=== PATIENT | female | born 1985 | race Caucasian/White ===

== ENCOUNTER 2021-10-06 13:14 | Emergency (ER) | payer OTHER, SELFPAY ==
[2021-10-06 13:16] VITALS: BP 138/97; PULSE 98; RESP 18; TEMP 35.7; O2SAT 96; BMI 31.9
--- NOTE | 2021-10-06 14:23 | CT_ITS ---
INDICATION: RLQ right flank pain EXAMINATION: CT ABDOMEN AND PELVIS WITH CONTRAST - CT Abdomen And Pelvis W/ Contrast Injection TECHNIQUE: Helically acquired images were obtained of the abdomen and pelvis following IV contrast. A radiation dose optimization technique was used for this scan. IV Contrast dosage and agent: 100 mL of [id number] Oral contrast: None. COMPARISON: 10/10/2011.. FINDINGS: LOWER CHEST: Lung bases are clear. No cardiomegaly or pericardial effusion. LIVER: Homogeneous. No focal mass. GALLBLADDER AND BILIARY TREE: No calcified gallstones. No gallbladder distension or wall edema. No intra- or extrahepatic biliary ductal dilation. PANCREAS: No focal cystic or solid mass. SPLEEN: Normal size without focal cystic or solid mass. ADRENAL GLANDS: No nodules. KIDNEYS AND URETERS: Normal renal size and position. No hydronephrosis. PERITONEUM: No ascites or free air. No other fluid collection. BOWEL: The stomach is unremarkable. Catheter fluid-filled loops of small bowel visualized. The cecum is visualized in the midabdomen. Focal dilation of the cecum but no evidence of wall thickening, no evidence of stranding of the adjacent fat planes is seen. No evidence of acute appendicitis. No stomach or bowel distension. No focal inflammatory change. LYMPH NODES: Scattered mesenteric and retroperitoneal lymph nodes. VESSELS: Aorta is non-dilated. URINARY BLADDER: Unremarkable. REPRODUCTIVE ORGANS: Anteverted anteflexed uterus demonstrates lobulated contour with focal areas of low attenuation visualized within the myometrium but no evidence of well-defined masses suggest uterine fibroids. Prominence of the ovaries is visualized bilaterally but more prominent on the right with larger prominent cyst visualized more prominent on the right seen on axial series 2 image 90 demonstrating hypervascularity along its periphery, hypervascular cysts also visualized in the left ovary visualized on axial series 2 image 79. Small amount of free fluid visualized within the pelvis more prominent on the left. Increased vascularity with ovarian vessels visualized on coronal series 601 image 58. ABDOMINAL WALL: No discrete abdominal or pelvic wall hernia. BONES: No lytic or blastic abnormality. CT/Abdomen/Pelvis W IV Cont ONLY IMPRESSION: Prominent ovaries visualized bilaterally with hypervascularity and suggestion of ruptured cysts seen, more prominent on the right, would recommend further evaluation with transvaginal pelvic ultrasound. Heterogeneous attenuation and nodularity visualized within the myometrium of fluid within the endometrial cavity recommend further evaluation with transvaginal pelvic ultrasound. Scattered mesenteric and inguinal lymphadenopathy is seen. Electronically Signed: Franklin Zuniga MD at 15:38 EST Tel , Service support ,
--- NOTE | 2021-10-06 14:23 | ED.VIS.GI ---
HPI HPI - GI History of Present Illness Chief Complaint: Abd Pain Informant: patient Narrative Narrative: Patient presents with right lower quadrant and right flank pain. She states when she woke up this morning she felt good. She states that the pain started but has increased. Its sharp but constant. She is not sure if it starts in the right lower quadrant and radiates to her back or vice versa. No discharge or bleeding. Last menstrual cycle about a month ago. She does have history of prior ovarian cyst and kidney stones but has been on long time. She has had 4 C-sections and tubal ligation but no other intra-abdominal surgery. She still has gallbladder and appendix. She denies fevers. Motion and pressing on the area does hurt somewhat. But it hurts all the time anyway. PFSH PFS Medical History History of kidney stones Hx of ovarian cyst Home Medications ferrous sulfate [Iron (ferrous sulfate)] 325 mg PO DAILY 07/31/15 [History Last Taken 04/22/17 12:00] [id number] [Prenatabs FA] 1 tab PO DAILY 07/31/15 [History Last Taken 04/22/17 21:00] nitrofurantoin monohyd/m-cryst 100 mg PO Q12 #14 capsule 03/26/17 [Rx Last Taken 04/22/17 18:30] Ibuprofen [Motrin] 800 mg PO TID PRN PRN #60 tab 04/26/17 [Rx Last Taken Unknown] oxycodone-acetaminophen 1 - 2 tab PO Q6H PRN PRN #40 tab 04/26/17 [Rx Last Taken Unknown] naproxen 500 mg PO BID #14 tab 10/06/21 [Rx Last Taken Unknown] Allergy/AdvReac Type Severity Reaction Status Date / Time miconazole Allergy Itching Verified 10/06/21 13:16 [From Neosporin AF] Social History Smoking Status: Never smoker ROS ROS ED Constitutional Constitutional ED: Denies fever(s) or subjective ENT ENT ED: Denies rhinorrhea Cardiovascular Cardiovascular: Denies chest pain Respiratory/Chest Respiratory/Chest: Denies cough or dyspnea Gastrointestinal Gastrointestinal: Reports abdominal pain and nausea; Denies constipation, diarrhea, melena or vomiting Genitourinary Genitourinary ED: Reports other Details: Possibly slightly darker. No dysuria. ; Denies dysuria Musculoskeletal Musculoskeletal: Denies arthralgias or myalgias Integumentary Denies rash Neurologic Neurologic: Denies headache(s) Endocrine Endocrinology: Denies polydipsia or polyuria Hematologic/Lymphatic Hematologic/Lymphatic: Denies easy bleeding or easy bruising Allergic/Immunologic Allergic/Immunologic ED: Denies mouth swelling or urticaria EXAM Physical Exam Const Vital Signs: 10/06/21 13:16 10/06/21 15:42 Temperature 96.3 F L Temperature Source Temporal Pulse Rate 98 Respiratory Rate 18 16 Blood Pressure 138/97 H Blood Pressure Mean 110 Pulse Ox 96 Oxygen Delivery Method Room Air Positive well nourished and well developed General Appearance ED: well developed and NAD HEENT Reports moist mucous membranes Eyes General Eye ED: Negative for pale conjunctiva or scleral icterus Neck no JVD Resp normal respiratory effort and clear to auscultation bilaterally Auscultation: Negative for rales, rhonchi or wheezes Cardio regular rate and regular rhythm GI non-distended and no masses GI Narrative: She does have some mild right lower quadrant tenderness but no rebound or guarding. This does not seem to extend into the pelvis. Auscultation: normoactive bowel sounds Palpation: soft Back/Spine General Back: CVA tenderness Extremity full ROM General Extremety ED: Yes edema General Extremity: edema Neuro Sensorium / Orientation: alert and oriented to person Psych mental status grossly normal Skin Lesions: no lesions Rashes: no rashes MDM MDM MDM Narrative Medical decision making narrative: Patient's blood work showed very minimal nonspecific elevation of her white count to 12.1. Hemoglobin platelets are normal. Electrolytes show no marked abnormalities. Serum is negative. Urinalysis shows some red cells but no white cells. Negative nitrites. Only a very small amount of leukocyte esterase. CAT scan tends to point toward ovarian cyst as the source of her symptoms. No sign of appendicitis or kidney stone. Patient states she is very comfortable now. We discussed the options of further exam and ultrasound but she states she has had cysts before she has done well with them. I explained that if she has worsening pain, vomiting, fevers she should return. We will write for nonsteroidals. Lab Data Attestation: I reviewed the patient's lab results. Labs: Laboratory Results - last 24 hr 10/06/21 10/06/21 10/06/21 13:39 13:39 13:39 WBC 12.1 H RBC 4.84 Hgb 14.4 Hct 41.7 MCV 86.2 MCH 29.8 MCHC 34.5 RDW Std Deviation 38.2 RDW Coeff of Yen 12.2 Plt Count 332 MPV 9.0 Immature Gran % (Auto) 0.300 Neut % (Auto) 65.4 Lymph % (Auto) 26.3 [place] % (Auto) 6.5 Eos % (Auto) 1.0 Baso % (Auto) 0.5 Absolute Neuts (auto) 7.9 H Absolute Lymphs (auto) 3.18 Nucleated RBC % 0 Sodium 139 Potassium 3.4 L Chloride 107 Carbon Dioxide 25.0 Anion Gap 7 BUN 13 Creatinine 0.76 Estim Creat Clear Calc 86.28 Est GFR (MDRD) Af Amer 112 Est GFR (MDRD) Non-Af 92 BUN/Creatinine Ratio 17.1 Glucose 95 Calcium 9.3 Serum , Qual NEGATIVE Urine Color Urine Clarity Urine pH Ur Specific [place] Urine Protein Urine Glucose (UA) Urine Ketones Urine Occult Blood Urine Nitrite Urine Bilirubin Urine Urobilinogen Ur Leukocyte Esterase Urine RBC Urine WBC Ur Squamous Epith Cells Urine Bacteria Urine Mucus 10/06/21 13:40 WBC RBC Hgb Hct MCV MCH MCHC RDW Std Deviation RDW Coeff of Yen Plt Count MPV Immature Gran % (Auto) Neut % (Auto) Lymph % (Auto) [place] % (Auto) Eos % (Auto) Baso % (Auto) Absolute Neuts (auto) Absolute Lymphs (auto) Nucleated RBC % Sodium Potassium Chloride Carbon Dioxide Anion Gap BUN Creatinine Estim Creat Clear Calc Est GFR (MDRD) Af Amer Est GFR (MDRD) Non-Af BUN/Creatinine Ratio Glucose Calcium Serum , Qual Urine Color Yellow Urine Clarity Sl. Cloudy Urine pH 5.0 Ur Specific [place] 1.020 Urine Protein Negative Urine Glucose (UA) Normal Urine Ketones Negative Urine Occult Blood 150 H Urine Nitrite Negative Urine Bilirubin Negative Urine Urobilinogen Normal Ur Leukocyte Esterase 25 H Urine RBC 10-25 SEEN Urine WBC 0-5 SEEN Ur Squamous Epith Cells 0-5 SEEN Urine Bacteria 1+ Urine Mucus 0 SEEN Radiography Diagnostic Testing: Clinical Impression(s) from Imaging Studies Abdomen/Pelvis CT 10/06/21 14:23 IMPRESSION: Prominent ovaries visualized bilaterally with hypervascularity and suggestion of ruptured cysts seen, more prominent on the right, would recommend further evaluation with transvaginal pelvic ultrasound. Heterogeneous attenuation and nodularity visualized within the myometrium of fluid within the endometrial cavity recommend further evaluation with transvaginal pelvic ultrasound. Scattered mesenteric and inguinal lymphadenopathy is seen. Electronically Signed: Franklin Zuniga MD at 15:38 EST Tel , Service support , Discharge Plan Triage Chief Complaint: Abd Pain ED Provider: Hugo Francis Dx/Rx/DC Orders Clinical Impression: Abdominal pain, Ovarian cyst rupture Instructions: ED Ovarian Cyst Prescriptions: New naproxen 500 MG tablet 500 mg PO BID Qty: 14 RF: 0 No Action ferrous sulfate [Iron (ferrous sulfate)] 325 MG tablet 325 mg PO DAILY RF: 0 [id number] [Prenatabs FA] 1 TABLET tablet 1 tab PO DAILY RF: 0 oxycodone-acetaminophen 1 TABLET tablet 1 - 2 tab PO Q6H PRN PRN (Reason: Pain) Qty: 40 RF: 0 Ibuprofen [Motrin] 800 MG tablet 800 mg PO TID PRN PRN (Reason: Pain) Qty: 60 RF: 1 nitrofurantoin monohyd/m-cryst 100 MG capsule 100 mg PO Q12 Qty: 14 RF: 0 Primary Care Provider: Tatianna Baeza Referrals: Tatianna Baeza MD [Primary Care Provider] - 3-5 Days if not improving Disposition Disposition: Home, Self Care
[2021-10-06 14:38] LABS: Absolute Lymphocyte Count 3.18 X10^3/uL (0.83-4.51); Absolute Neutrophil Count 7.9 X10^3/uL (2.0-7.7); Basophil# 0.06 X10^3/uL; Basophil% 0.5 % (0-1); Eosinophil# 0.12 X10^3/uL; Hematocrit 41.7 % (37-47); Hemoglobin 14.4 g/dL (12.0-15.0); Lymphocyte # 3.18 X10^3/ul (0.83-4.51); Lymphocyte % 26.3 % (19-41); Mean Corp Hgb Conc 34.5 g/dL (32-36); Mean Corpuscular Hgb 29.8 pg (27.0-32.0); Mean Corpuscular Volume 86.2 fL (81-99); Monocyte# 0.78 X10^3/uL; Monocyte% 6.5 % (0-10); NRBC Flagged by Analyzer 0 % (0-5); Neutrophil # 7.91 X10^3/uL (2.7-7.7); Neutrophil % 65.4 % (47-70); Platelet Count 332 K/mm3 (150-450); RBC Distribution Width CV 12.2 % (11.6-14.6); RBC Distribution Width SD 38.2 fl (35.1-43.9); Red Blood Count 4.84 M/mm3 (4.2-5.4); White Blood Count 12.1 K/mm3 (4.4-11.0)
[2021-10-06] MEDS: Ondansetron 4 MG/2 ML Vial IV (14:39)
[2021-10-06] MEDS: Morphine 4 MG/ML Syringe IV (14:39)
[2021-10-06] MEDS: 0.9% Normal Saline 1,000 ML 1000 ML IV (14:39)
[2021-10-06 14:43] LABS: Internal QC Validated? YES +Cl - CLEAR BKGD; Pregnancy, Serum, hCG Quali. NEGATIVE Negative
[2021-10-06 14:47] LABS: Anion Gap 7 (5-15); BUN 13 mg/dL (7-18); BUN/Creat Ratio 17.1 RATIO (10-20); Calcium,Total 9.3 mg/dL (8.5-10.1); Chloride 107 mmol/L (98-107); Creatinine, Serum 0.76 mg/dL (0.55-1.02); EST Glomerular Filtration Rate 92 mL/min (>60); Est Glom Filt Rate - Afr Amer 112 mL/min (>60); Estimated Creatinine Clearance 86.28 ml/min; Glucose 95 mg/dL (74-106); Potassium 3.4 mmol/L (3.5-5.1); Sodium Level 139 mmol/L (136-145)
[2021-10-06 14:49] LABS: Mucous, Urine 0 SEEN /hpf (<or=2+)
[2021-10-06 14:51] LABS: Color, Urine Yellow (Yellow); Glucose, Dipstick Normal (Normal); Ketone-Dipstick Negative (Negative); Leukocyte Esterase-Dipstick 25 /ul (Negative); Nitrite-Dipstick Negative (Negative); Occult Blood-Urine 150 /ul (Negative); Protein-Dipstick Negative (Negative); Urine Bilirubin Dipstick Negative (Negative); Urine Clarity Sl. Cloudy (Clear); Urine Urobilinogen Normal (Normal)
[2021-10-06 15:07] LABS: Red Blood Cells-Urine 10-25 SEEN /hpf (0-5); Squamous Epithelial Cells - UA 0-5 SEEN /hpf (5-10); White Blood Cells 0-5 SEEN /hpf (0-5)
[2021-10-06 15:08] LABS: Bacteria 1+ /hpf (None Seen)
[2021-10-06 15:42] VITALS: RESP 16
== END 2021-10-06 16:23 | disposition home or self-care (01) ==
PROVIDERS: Emergency Provider Emergency Medicine; PCP Internal Medicine
DX: N83.202 Unspecified ovarian cyst, left side (principal); N83.201 Unspecified ovarian cyst, right side; R10.31 Right lower quadrant pain; Z87.442 Personal history of urinary calculi
CPT/HCPCS: 74177; 80048; 81001; 84703; 85025; 96361; 96374; 96375; 99282; J7030; Q9967; A4216; J2405

== ENCOUNTER → 2023-03-10 | Outpatient (CLI) | payer OTHER, SELFPAY ==
[2023-03-10 12:58] LABS: Absolute Lymphocyte Count 1.81 X10^3/uL (0.83-4.51); Absolute Neutrophil Count 2.7 X10^3/uL (2.0-7.7); Basophil# 0.06 X10^3/uL; Basophil% 1.1 % (0-1); Eosinophil# 0.29 X10^3/uL; Eosinophils% 5.1 % (0-5); Hematocrit 39.1 % (37-47); Hemoglobin 12.8 g/dL (12.0-15.0); Lymphocyte # 1.81 X10^3/ul (0.83-4.51); Lymphocyte % 31.9 % (19-41); Mean Corp Hgb Conc 32.7 g/dL (32-36); Mean Corpuscular Hgb 29.2 pg (27.0-32.0); Mean Corpuscular Volume 89.1 fL (81-99); Mean Platelet Vol. 9.3 fl (6.2-12.0); Monocyte# 0.78 X10^3/uL; Monocyte% 13.8 % (0-10); NRBC Flagged by Analyzer 0 % (0-5); Neutrophil # 2.72 X10^3/uL (2.7-7.7); Neutrophil % 47.9 % (47-70); Platelet Count 258 K/mm3 (150-450); RBC Distribution Width CV 12.7 % (11.6-14.6); RBC Distribution Width SD 41.4 fl (35.1-43.9); Red Blood Count 4.39 M/mm3 (4.2-5.4); White Blood Count 5.7 K/mm3 (4.4-11.0)
[2023-03-10 13:11] LABS: Hemoglobin A1c 4.8 % (3.8-5.6)
[2023-03-10 13:29] LABS: Vitamin B12 206 pg/mL (211-911)
[2023-03-10 13:43] LABS: ALB/GLOB Ratio 1.1 RATIO (0.9-2.4); AST(SGOT) 29 U/L (15-37); Alanine Aminotransfer ALT/SGPT 38 U/L (13-56); Albumin, Serum 3.8 g/dL (3.2-5.0); Alkaline Phosphatase 101 U/L (45-117); Anion Gap 8 (5-15); BUN 16 mg/dL (7-18); BUN/Creat Ratio 20.3 RATIO (10-20); Chloride 109 mmol/L (98-107); Cholesterol 170 mg/dL (200); Creatinine, Serum 0.79 mg/dL (0.55-1.02); EST Glomerular Filtration Rate 88 mL/min (>60); Est Glom Filt Rate - Afr Amer 106 mL/min (>60); Globulin 3.6 g/dL (2.2-4.2); Glucose 92 mg/dL (74-106); High Density Lipoprotein 38 mg/dL; Potassium 3.9 mmol/L (3.5-5.1); Protein, Total 7.4 g/dL (6.4-8.2); Sodium Level 142 mmol/L (136-145); Thyroid Stim Hormone (TSH) 1.12 uIU/mL (0.358-3.74); Triglycerides 142 mg/dL; Very Low Density Lipoprotein 28 mg/dL (5-40)
[2023-03-12 12:09] LABS: Vitamin D 1,25-Dihydroxy 62.2 pg/mL (24.8-81.5)
== END | disposition home or self-care (01) ==
LOC: MFPLAB 10:26
PROVIDERS: PCP Internal Medicine; Visit Provider Family Medicine
DX: Z00.00 Encounter for general adult medical examination without abnormal findings (principal); Z13.0 Encounter for screening for diseases of the blood and blood-forming organs and certain disorders involving the immune mechanism; Z13.1 Encounter for screening for diabetes mellitus; Z13.220 Encounter for screening for lipoid disorders; Z13.29 Encounter for screening for other suspected endocrine disorder; R53.83 Other fatigue
CPT/HCPCS: 36415; 80053; 80061; 82607; 82652; 83036; 84443; 85025